=== PATIENT | male | born 1955 | race Caucasian/White ===

== ENCOUNTER 2017-07-01 13:56 | Outpatient (CLI) | payer OTHER ==
--- NOTE | 2017-07-01 16:29 | MRI Report ---
EXAM: MRI LUMBAR SPINE WITHOUT CONTRAST EXAM DATE: 07/01/2017 02:51 PM. CLINICAL HISTORY: Low back pain. COMPARISON: 11/26/2014 MRI. TECHNIQUE: Multiplanar, multisequence T1-weighted and fluid-sensitive sequences of the lumbar spine f rom T12 to S1 without contrast. Other: None. FINDINGS: Spinal Cord: The conus terminates at L1. The conus medullaris and cauda equina are unremarkable. Alignment: No scoliosis or spondylolisthesis. Bone Marrow: Five asr-nis-zqxzjmk lumbar vertebral bodies are assumed. No gross fractures or bone les ions. No bone marrow edema. Disk Levels/Facets: T11-T12: Unremarkable. T12-l1: Unremarkable. L1-L2: Unremarkable. L2-L3: The disk is desiccated with anterior endplate spurring. Mild bilateral facet hypertrophy and s mall foraminal area protrusions result in minimal bilateral foraminal narrowing, unchanged. L3-L4: Small foraminal area protrusions result in minimal bilateral foraminal narrowing. L4-L5: The disk is desiccated with moderate height loss. Anterior endplate spurring is present. A pos terior disk protrusion and mild ligamentum flavum hypertrophy results in mild spinal canal, mild righ t foraminal, and moderate left foraminal narrowing as before. L5-S1: Unremarkable. Musculature: Normal. No edema or fatty atrophy. Other: The partially visualized retroperitoneum is unremarkable. IMPRESSION: Mild spinal canal, mild right foraminal, and moderate left foraminal narrowing at L4-L5 d ue to a disk protrusion and posterior element degenerative changes as before. Comment: The following findings are so common in adults without low back pain that while we report th eir presence, they must be interpreted with caution and in the context of the clinical situation. (Re argelia López et al, Spine 2001) Prevalence of findings in patients without low back pain: Disk degeneration (any evidence): 92% Disk desiccation/T2 signal loss: 83% Disk height loss: 56% Disk bulge: 64% Disk protrusion: 32% Annular tear/high intensity zone: 38% [facility] Referring Provider Line: [phone] SITE ID: [id number]
== END 2017-07-01 13:57 | disposition home or self-care (01) ==
LOC: DI 13:56
PROVIDERS: ATTEND Family Medicine
DX: M51.36 Other intervertebral disc degeneration, lumbar region (principal); M51.26 Other intervertebral disc displacement, lumbar region; M47.896 Other spondylosis, lumbar region
CPT/HCPCS: 72148

== ENCOUNTER 2018-10-23 12:13 | Outpatient (CLI) | payer OTHER ==
--- NOTE | 2018-10-24 13:43 | MRI Report ---
Reason: LOW BACK PAIN Procedure Date: 10/23/2018 Accession Number: [id number] / [id number] Procedure: MRI - Lumbar Spine W/O CPT Code: FULL RESULT: EXAM: MRI LUMBAR SPINE WITHOUT CONTRAST EXAM DATE: 10/23/2018 01:08 PM. CLINICAL HISTORY: Low back pain. COMPARISON: LUMBAR SPINE W/O 07/01/2017 2:14 PM. TECHNIQUE: Multiplanar, multisequence T1-weighted and fluid-sensitive sequences of the lumbar spine from T12 to S1 without contrast. Other: None. FINDINGS: Spinal Canal: The conus terminates at T12-L1. The conus medullaris and cauda equina are unremarkable. Alignment: No scoliosis or spondylolisthesis. Bone Marrow: Five vac-btr-ldhbawn lumbar vertebral bodies are assumed. No gross fractures or bone lesions. No bone marrow replacement. Disk Levels/Facets: T12-L1: Unremarkable. L1-L2: Unremarkable. L2-L3: Mild disk dehydration. No central or foraminal stenosis. Prominent facets. Stable. L3-L4: Some disk dehydration and prominent facets. No central or foraminal stenosis. L4-L5: Some disk dehydration, mild broad-based disk bulge. Some mild hypertrophic facets and ligament flavum. Mild central stenosis. Disk bulge comes in contact with both L4 roots, worse on the left with minimal effacement. Moderate left foraminal narrowing. Similar to previous. L5-S1: Prominent facets. Normal disk. No stenosis. Musculature: Normal. No edema or fatty atrophy. Other: The partially visualized retroperitoneum is unremarkable. IMPRESSION: 1. Spinal cord terminates at T12-L1. No abnormal cord signal is seen. No scoliosis or listhesis. No significant fatty atrophy of the multifidus muscle. 2. L2-L3 shows no stenosis, prominent facets. Otherwise stable. 3. L3-L4 shows no central or foraminal stenosis. Some disk dehydration and prominent facets are noted. 4. L4-L5 shows disk dehydration and mild broad-based disk bulge, some facet hypertrophic changes are present, mild central stenosis. Disk bulge comes into contact with both L4 roots, worse on the left with minimal effacement. Moderate left foraminal stenosis, mild right foraminal stenosis. Similar to previous. 5. L5-S1 shows prominent facets and a normal disk. No stenosis. Also unchanged. Comment: The following findings are so common in adults without low back pain that while we report their presence, they must be interpreted with caution and in the context of the clinical situation. (Reference Domenicok et al, Spine 2001) Prevalence of findings in patients without low back pain: Disk degeneration (any evidence): 92% Disk desiccation/T2 signal loss: 83% Disk height loss: 56% Disk bulge: 64% Disk protrusion: 32% Annular tear/high intensity zone: 38% RAD[facility]
== END 2018-10-23 12:14 | disposition home or self-care (01) ==
LOC: DI 12:13
PROVIDERS: ATTEND Registered Nurse Diabetes Educator
DX: M51.26 Other intervertebral disc displacement, lumbar region (principal)
CPT/HCPCS: 72148

== ENCOUNTER 2018-10-30 11:32 | Emergency (ER) | payer OTHER ==
--- NOTE | 2018-10-30 12:05 | ED Physician Documentation ---
History of Present Illness - Stated complaint Stated Complaint: HERNANDEZ/DIZZINESS - Chief complaint Chief Complaint: Neuro - History obtained from History obtained from: Patient - History of Present Illness Timing: Today - Additonal information Additional information: Patient is a 62-year-old male with history of vertigo presenting with symptoms of recurrence of vertigo today.Patient reports that he has had vertigo in the past following head colds and does report nasal congestion and ear pressure.Patient reports mild frontal headache, as well as significant dizziness without lightheadedness, passing out, syncope, trauma, or fall. Patient reports photosensitivity but no other vision loss. No significant nausea, vomiting, abdominal pain. No recent urinary or stool changes, fever, difficulty breathing or other concerns.Patient reports his symptoms are lesser than his usual bouts of vertigo. No other improving or worsening factors noted. Review of Systems Constitutional: denies: Fever Eyes: reports: Photophobia. denies: Loss of vision, Decreased vision Ears: reports: Ear pain Nose: reports: Congestion Cardiac: denies: Chest pain / pressure Respiratory: denies: Dyspnea GI: denies: Abdominal Pain, Nausea, Vomiting, Diarrhea : denies: Dysuria Neurologic: reports: Headache. 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: Other - Present Medications Home Medications: Ambulatory Orders Medication Instructions Recorded Confirmed Acetaminophen [Tylenol] 650 mg PO DAILY 01/03/14 05/17/14 Loratadine [Claritin] 10 mg PO DAILY 01/03/14 05/17/14 Meloxicam [Mobic] 7.5 mg PO DAILY 01/03/14 05/17/14 Simvastatin [Zocor] 20 mg PO QPM 01/03/14 05/17/14 Meclizine [Antivert] 25 - 50 mg PO Q6H PRN #14 tablet 10/30/18 Ondansetron Odt [Zofran] 4 mg TL Q6H PRN #10 tablet 10/30/18 - Allergies Allergies/Adverse Reactions: Allergies Allergy/AdvReac Type Severity Reaction Status Date / Time No Known Drug Allergies Allergy Verified 10/30/18 11:43 - Social History Does the pt smoke?: Yes Smoking Status: Current every day smoker Does the pt drink ETOH?: No Does the pt have substance abuse?: No - Immunizations Immunizations are current?: Yes - POLST Patient has POLST: No PD ED PE NORMAL - Vitals Vital signs reviewed: Yes - General General: Alert and oriented X 3, No acute distress, Well developed/nourished - HEENT HEENT: Atraumatic, PERRL (Gross visual acuity intact. No nystagmus.), EOMI, Ears normal, Moist mucous membranes, Pharynx benign - Neck Neck: Supple, no meningeal sign - Cardiac Cardiac: RRR, No murmur - Respiratory Respiratory: No respiratory distress, Clear bilaterally - Abdomen Abdomen: Soft, Non tender, Non distended - Derm Derm: Normal color, Warm and dry, No rash - Extremities Extremities: No deformity, No tenderness to palpate - Neuro Neuro: Alert and oriented X 3, No motor deficit, No sensory deficit - Psych Psych: Normal mood, Normal affect Results - Vitals Vitals: Vital Signs - 24 hr 10/30/18 10/30/18 10/30/18 11:41 12:18 13:14 Temperature 36.5 C 36.6 C Heart Rate 109 H 79 74 Respiratory 18 18 68 H Rate Blood Pressure 110/66 117/71 113/56 L O2 Saturation 98 98 96 10/30/18 13:44 Temperature Heart Rate 61 Respiratory 16 Rate Blood Pressure 107/58 L O2 Saturation 100 Oxygen O2 Source Room air PD MEDICAL DECISION MAKING - ED course Complexity details: re-evaluated patient, considered differential, d/w patient, d/w family ED course: Patient presenting with symptoms indicative of benign positional vertigo. Epifanio ceron has had this issue in the past and states symptoms are actually less severe than his usual episodes. No trauma or neurological deficits and have low suspicion for concussion, closed head injury, stroke, or other intracranial pathology. Do not feel patient requires CT head imaging at this time. Remainder physical exam is also benign and do not feel that patient is likely suffering from other pathology at this time. Do not feel he requires invasive testing and he agrees. Provided meclizine and Zofran which resulted in significant improvement of symptoms. Discussed use of these medications at home, as well as other supportive cares, return precautions, and follow-up. Patient voiced understanding and is comfortable with discharge plan. Departure - Departure Disposition: 01 Home, Self Care Clinical Impression: Vertigo Condition: Good Instructions: ED Vertigo Unspecified Follow-Up: Crispin Waters ARNP [Primary Care Provider] - Within 3 Days Prescriptions: Meclizine [Antivert] 25 - 50 mg PO Q6H PRN #14 tablet PRN Reason: Vertigo Ondansetron Odt [Zofran] 4 mg TL Q6H PRN #10 tablet PRN Reason: Nausea / Vomiting Comments: Please use Zofran and meclizine as prescribed to treat nausea and vertigo-like symptoms as needed. Please follow-up with primary care physician next 2 to 3 days and return to ED sooner if experience worsening symptoms or other concerns.
[2018-10-30] MEDS ORDERED: MECLIZINE 12.5 MG TABLET PO STA (12:10)
[2018-10-30] MEDS ORDERED: ONDANSETRON ODT 4 MG TABLET TL STA (12:10)
[2018-10-30 13:46] VITALS: BP 107/58
== END 2018-10-30 13:57 | disposition home or self-care (01) ==
LOC: ED 11:32
DX: R42 Dizziness and giddiness (principal); F17.200 Nicotine dependence, unspecified, uncomplicated
CPT/HCPCS: 99282; 99284; A9270; Q0162

== ENCOUNTER 2021-12-17 19:47 | Emergency (ER) | payer MEDICARE, OTHER ==
[2021-12-17 20:16] LABS: BASOPHILS % (AUTO) 0.4 %; EOSINOPHILS # (AUTO) 0.3 10^3/uL (0.0-0.7); EOSINOPHILS % (AUTO) 3.3 %; HCT - HEMATOCRIT 41.3 % (42.0-52.0); HGB - HEMOGLOBIN 14.1 g/dL (14.0-18.0); LYMPHOCYTES % (AUTO) 30.2 %; MEAN CORPUSCULAR HEMOGLOBIN 31.8 pg (27.0-31.0); MEAN CORPUSCULAR HGB CONC 34.1 g/dL (32.0-36.0); MEAN PLATELET VOLUME 10.6 fL (7.4-11.4); MONOCYTES # (AUTO) 0.6 10^3/uL (0.0-1.0); MONOCYTES % (AUTO) 6.1 %; NEUTROPHILS # (AUTO) 5.8 10^3/uL (1.5-6.6); NEUTROPHILS % (AUTO) 59.6 %; PLT - PLATELET COUNT 178 10^3/uL (130-450); RED BLOOD COUNT 4.44 10^6/uL (4.70-6.10); RED CELL DISTRIBUTION WIDTH 13.3 % (12.0-15.0); WHITE BLOOD COUNT 9.8 x10^3/uL (4.8-10.8)
[2021-12-17 20:29] LABS: ALBUMIN 4.1 g/dL (3.2-5.5); ALBUMIN/GLOBULIN RATIO 1.4 (1.0-2.2); BILIRUBIN,TOTAL 0.5 mg/dL (0.2-1.0); CALCIUM 9.2 mg/dL (8.5-10.3); CREATININE 1.2 mg/dL (0.6-1.2); POTASSIUM 4.1 mmol/L (3.5-5.0)
[2021-12-17] MEDS: HYDROmorphone 1 MG/ML CARPUJECT IVP STA (20:56)
[2021-12-17] MEDS: KETOROLAC 30 MG/ML VIAL IVP STA (20:56)
[2021-12-17] MEDS: SODIUM CHLORIDE 0.9% 1,000 ML IV STA (20:56)
[2021-12-17] MEDS: ONDANSETRON 4 MG/2 ML VIAL IVP STA (20:57)
--- NOTE | 2021-12-17 22:20 | CT Report ---
PROCEDURE: Abdomen/Pelvis WO INDICATIONS: L flank pain, h/o kidney stone TECHNIQUE: Noncontrast 5 mm thick sections acquired from the diaphragms to the symphysis. 5 mm coronal and sagi ttal reformats were then performed. For radiation dose reduction, the following was used: automated exposure control, adjustment of mA and/or kV according to patient size. COMPARISON: CT abdomen pelvis 05/17/2014. FINDINGS: Image quality: There is mild motion artifact. Lung bases: There is mild scarring in the lung bases. Heart: Heart is normal in size. URINARY: Right Kidney and Ureter: There are a few nonobstructing right renal stones, with the largest discre te stone measuring up to 0.3 cm. No hydronephrosis. No hydroureter. Left Kidney and Ureter: There is a punctate calcification in the bladder adjacent to the left urete rovesicular junction likely representing passage of a stone in progress. There is associated mild lef t hydroureteronephrosis with minimal perinephric and periureteral fat stranding. There are indistinct high density foci also demonstrated in the left kidney with a punctate nonobstructive stone in the i nferior pole. Bladder: Normal wall thickness. ABDOMEN: Liver: Noncontrast evaluation of the liver demonstrates no discrete mass. Gallbladder: Within normal limits without calcified gallstones. Biliary ducts: No biliary ductal dilatation. Pancreas: Unremarkable. Spleen: Normal in size.There are a few scattered calcifications in the spleen consistent sequelae o f old granulomatous disease. Adrenal Glands: No adrenal nodules. Stomach and Bowel: Stomach and small bowel loops are normal in caliber and wall thickness. There are postsurgical changes along the cecum likely related to prior appendectomy. There is mild segmental c olonic wall thickening within the small ascending colon and proximal transverse colon centered at the hepatic flexure. There are a few colonic diverticula distally without acute diverticulitis. Peritoneum: No abnormal intraperitoneal fluid. No free air. Ventral Wall: No hernia. Abdominal Nodes: No retroperitoneal or mesenteric adenopathy by size criteria. Vessels: Aorta and inferior vena cava are normal in size. PELVIS: Pelvic Organs: Unremarkable. Pelvic Nodes: No enlarged lymph nodes. Miscellaneous: No inguinal hernias identified. Bones: Visualized osseous structures demonstrate no suspicious focal lesions. IMPRESSION: 1. Punctate bladder calcification compatible with a recently passed stone with persistent left hydrou reteronephrosis. 2. Mild segmental wall thickening within the descending colon and proximal transverse colon suggestiv e of a mild nonspecific colitis. 3. Small stone in the bladder at the left UVJ with associated mild left hydronephrosis. Reviewed by: Brian Gannon MD on 12/17/2021 10:18 PM PDT Approved by: Brian Gannon MD on 12/17/2021 10:18 PM PDT Station ID: [id number]
--- NOTE | 2021-12-17 22:28 | ED Physician Documentation ---
PD HPI ABD PAIN - Stated complaint Stated Complaint: N/V/D - Chief complaint Chief Complaint: Abd Pain - History obtained from History obtained from: Patient - Additional information Additional information: The patient comes to the emergency department with chief complaint of left flank pain that started this evening. He states that he has had kidney stones before and this feels the same. Patient also notes incidentally that he has a "cracked molar" on his left mandible and that this has been causing a lot of pain. He has a dental appointment coming up in about a week and a half for this. Patient denies any nausea or vomiting. No fevers or chills. No dysuria. No frequency. No gross hematuria. No other complaints at this time. Review of Systems Ten Systems: 10 systems reviewed and negative Constitutional: reports: Reviewed and negative Eyes: reports: Reviewed and negative Ears: reports: Reviewed and negative Nose: reports: Reviewed and negative Throat: reports: Dental pain / toothache Cardiac: reports: Reviewed and negative Respiratory: reports: Reviewed and negative GI: reports: Abdominal Pain. denies: Nausea, Vomiting : reports: Reviewed and negative Skin: reports: Reviewed and negative Musculoskeletal: reports: Reviewed and negative Neurologic: reports: Reviewed and negative Psychiatric: reports: Reviewed and negative Endocrine: reports: Reviewed and negative Immunocompromised: reports: Reviewed and negative PD PAST MEDICAL HISTORY - Past Medical History Past Medical History: Yes GI: Other Other Past Medical History: bilateral inguinal hernias. 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: Other - Present Medications Home Medications: Ambulatory Orders Medication Instructions Recorded Confirmed Acetaminophen [Tylenol] 650 mg PO DAILY 01/03/14 05/17/14 Loratadine [Claritin] 10 mg PO DAILY 01/03/14 05/17/14 Meloxicam [Mobic] 7.5 mg PO DAILY 01/03/14 05/17/14 Simvastatin [Zocor] 20 mg PO QPM 01/03/14 05/17/14 Meclizine [Antivert] 25 - 50 mg PO Q6H PRN #14 tablet 10/30/18 Ondansetron Odt [Zofran] 4 mg TL Q6H PRN #10 tablet 10/30/18 Amoxicillin 500 mg PO TID 7 Days #21 cap 12/17/21 HYDROcod/ACETAM 5/325 [Harrison 5/325] 1 - 2 tablet PO Q6H PRN #14 tablet 12/17/21 Tamsulosin HCl [Flomax] 0.4 mg PO DAILY #5 cap 12/17/21 - Allergies Allergies/Adverse Reactions: Allergies Allergy/AdvReac Type Severity Reaction Status Date / Time No Known Drug Allergies Allergy Verified 12/17/21 19:56 - Social History Does the pt smoke?: Yes Smoking Status: Current every day smoker Does the pt drink ETOH?: No Does the pt have substance abuse?: No - Immunizations Immunizations are current?: Yes - POLST Patient has POLST: No PD ED PE NORMAL - Vitals Vital signs reviewed: Yes - General General: Alert and oriented X 3, No acute distress, Well developed/nourished - HEENT HEENT: Atraumatic, PERRL, EOMI, Moist mucous membranes, Other (No obvious dental decay. No gingival edema. No tenderness around left mandibular first molar.) - Neck Neck: Supple, no meningeal sign - Cardiac Cardiac: RRR, No murmur, Strong equal pulses - Respiratory Respiratory: No respiratory distress, Clear bilaterally - Abdomen Abdomen: Soft, Non distended, Other (Left flank tenderness, no rebound or guarding.) - Back Back: Other (Mild left CVA tenderness) - Derm Derm: Warm and dry - Extremities Extremities: No deformity, No edema, No calf tenderness / cord - Neuro Neuro: Alert and oriented X 3, stogy roller 2-12 intact, Normal speech - Psych Psych: Normal mood, Normal affect Results - Vitals Vitals: Vital Signs - 24 hr 12/17/21 12/17/21 12/17/21 19:52 21:56 23:15 Temperature 35.7 C L Heart Rate 67 67 Respiratory 16 16 16 Rate Blood Pressure 103/67 155/75 H 95/51 L O2 Saturation 98 98 Oxygen O2 Source Room air - Labs Labs: Laboratory Tests 12/17/21 12/17/21 20:10 20:10 WBC 9.8 RBC 4.44 L Hgb 14.1 Hct 41.3 L MCV 93.0 MCH 31.8 H MCHC 34.1 RDW 13.3 Plt Count 178 MPV 10.6 Neut # (Auto) 5.8 Lymph # (Auto) 3.0 [place] # (Auto) 0.6 Eos # (Auto) 0.3 Baso # (Auto) 0.0 Absolute Nucleated RBC 0.00 Nucleated RBC % 0.0 Sodium 139 Potassium 4.1 Chloride 105 Carbon Dioxide 25 Anion Gap 9.0 BUN 28 H Creatinine 1.2 Estimated GFR (MDRD) 61 L Glucose 114 H Calcium 9.2 Total Bilirubin 0.5 AST 18 ALT 21 Alkaline Phosphatase 73 Total Protein 7.0 Albumin 4.1 Globulin 2.9 Albumin/Globulin Ratio 1.4 Lipase 58 H - Rads (name of study) CT abdomen pelvis no contrast Radiology: Final report received, EMP read indepedently, See rad report (Small stone at left UVJ with fragment entering bladder adjacent. Mild Hydroureter) PD MEDICAL DECISION MAKING - ED course Complexity details: reviewed results, re-evaluated patient, considered differential, d/w patient, d/w family ED course: The patient was treated symptomatically with Toradol and Dilaudid after which he was found to be more comfortable. I discussed his CT findings with him. We will start him on Flomax and as needed Vicodin. I will also start him on some amoxicillin for his dental pain to prepare him for his dental appointment. We have discussed home management and symptoms as well as the usual indications for return. Departure - Departure Disposition: Home, Self Care Clinical Impression: Kidney stone on left side, Pain, dental Condition: Stable Instructions: ED Tooth Pain, ED Stone Renal W Colic Prescriptions: Amoxicillin 500 mg PO TID 7 Days #21 cap Tamsulosin HCl [Flomax] 0.4 mg PO DAILY #5 cap HYDROcod/ACETAM 5/325 [Harrison 5/325] 1 - 2 tablet PO Q6H PRN #14 tablet PRN Reason: Pain Comments: Your CT scan shows a tiny stone that is in your bladder that most likely passed on the left. You also have another small stone that is right at the junction of your ureter and bladder. You have just a mild amount of enlargement of the left ureter, most likely due to the stones impeding some of the flow through the ureter. This should resolve as soon as the stone passes. The stones are small and of a very passable size, and should be expected to pass within a matter of hours to days. On rare occasion, stones can take a few weeks to pass but generally not at the size of yours. You may take the pain medication prescribed, as needed. I have also prescribed an antibiotic for your tooth to prepare you for your dental appointment. Your prescriptions have been electronically transmitted to [facility] pharmacy in [place]. Please pick these up first thing in the morning. Discharge Date/Time: 12/17/21 23:15
[2021-12-17] MEDS: HYDROcod/ACET 5/325 Prepack 4 PO STA (22:39)
[2021-12-17 23:17] VITALS: BP 95/51
== END 2021-12-17 23:15 | disposition home or self-care (01) ==
LOC: ED 19:47
DX: N13.2 Hydronephrosis with renal and ureteral calculous obstruction (principal); K08.89 Other specified disorders of teeth and supporting structures; F17.200 Nicotine dependence, unspecified, uncomplicated
CPT/HCPCS: 36415; 74176; 80053; 83690; 85025; 96374; 96375; 99284; J1170

== ENCOUNTER 2022-02-26 07:55 | Outpatient (CLI) | payer MEDICARE, OTHER ==
--- NOTE | 2022-02-26 09:50 | CT Report ---
PROCEDURE: Low Dose Lung Cancer Screen INDICATIONS: 50 pack-year history of tobacco smoking TECHNIQUE: Noncontrast low-dose axial images were acquired from the pulmonary apices to the posterior costophren ic angles. Multiplanar MIP reformats were then reconstructed. For radiation dose reduction, the follo wing was used: automated exposure control, adjustment of mA and/or kV according to patient size. COMPARISON: None. FINDINGS: Image quality: Excellent. Lungs and pleura: Moderate apical predominant centrilobular and paraseptal emphysematous changes. No suspicious pulmonary nodule or mass. Central airways and pleural spaces clear. Mediastinum: Aortic and coronary atherosclerosis. Normal heart size. No pericardial effusion. No thre shold enlarged thoracic lymph nodes. Bones and chest wall: No suspicious bony lesions. No vertebral body compression fractures. No axil rebeka or supraclavicular adenopathy by size criteria. The thyroid is normal in size and there are no incidental findings. Abdomen: Visualized upper abdomen solid organs and bowel loops appear normal in the absence of contr ast. IMPRESSION: Lung-RADS Category: 1 - Benign. No suspicious pulmonary nodule or mass. Recommendation: Continued annual low-dose screening CT of the chest. Reviewed by: Angelo Tubbs MD on 02/26/2022 8:48 AM [facility] Approved by: Angelo Tubbs MD on 02/26/2022 8:48 AM [facility] Station ID: [id number]
--- NOTE | 2022-02-26 15:16 | Ultrasound Report ---
PROCEDURE: Aorta Screening INDICATIONS: CURRENT SMOKER TECHNIQUE: Real time scanning was performed of the aorta and iliac arteries, with image documentatio n. COMPARISON: None FINDINGS: Aorta: Proximal aortic diameter measures 2.57 cm. Mid-aorta measures 2.0 cm. Distal aortic diamete r is 2.2 cm. Iliac arteries: Right common iliac artery measures 0.9 cm. Left common iliac artery measures 0.8 cm . IMPRESSION: No evidence for infrarenal abdominal aortic aneurysm. Reviewed by: Duy León MD on 02/26/2022 3:15 PM PST Approved by: Duy León MD on 02/26/2022 3:15 PM PST Station ID: [id number]
== END 2022-02-26 07:56 | disposition home or self-care (01) ==
LOC: DI 07:55
PROVIDERS: ATTEND Internal Medicine
DX: Z12.2 Encounter for screening for malignant neoplasm of respiratory organs (principal); F17.210 Nicotine dependence, cigarettes, uncomplicated